=== PATIENT | female | born 1970 | race Caucasian/White ===

== ENCOUNTER 2017-09-08 01:19 | Emergency (ER) | END 2017-09-08 04:41 | disposition home or self-care (01) ==

== ENCOUNTER → 2019-02-19 | Outpatient (CLI) | payer BC ==
[~2019-02-19] MED LIST: AMBR5TAB3 PO; CETI5TAB20 PO; CEVI30CA8 PO; DEXL60CA2 PO; FURO40TA4 PO; HYDR-4011 PO; HYDR200T5 PO; LORA-186 PO; METO2.5T PO; NADO20TA PO; ONDA4TAB14 PO; POTA10TA37 PO; SPIR50TA PO; URSO250T10 PO
== END | disposition home or self-care (01) ==
LOC: LAB 15:35
PROVIDERS: ATTEND Internal Medicine
DX: R05 Cough (principal)
CPT/HCPCS: 71046